=== PATIENT | male | born 1995 | race Caucasian/White ===

== ENCOUNTER 2016-12-03 20:53 | Emergency (ER) | payer OTHER ==
[2016-12-04 02:03] VITALS: BP 136/78
== END 2016-12-04 02:03 | disposition home or self-care (01) ==
LOC: ED 20:53
DX: S61.313A Laceration without foreign body of left middle finger with damage to nail, initial encounter (principal); S60.132A Contusion of left middle finger with damage to nail, initial encounter; W45.8XXA Other foreign body or object entering through skin, initial encounter; Y93.89 Activity, other specified; Y99.8 Other external cause status; Y92.89 Other specified places as the place of occurrence of the external cause
CPT/HCPCS: 90715; J2001